=== PATIENT | male | born 1970 | race Caucasian/White ===

== ENCOUNTER 2021-12-07 16:52 | Inpatient (IN) | payer MEDICAID ==
[2021-12-07] MEDS ORDERED: KETOROLAC 15 MG/ML 1 ML VIAL IVP STA (17:11)
[2021-12-07] MEDS ORDERED: SODIUM CHLORIDE 0.9% 1,000 ML IV ONE (17:11)
--- NOTE | 2021-12-07 17:20 | ED ---
General Adult HPI - General Source: patient, RN notes reviewed, old records reviewed Mode of arrival: ambulatory Limitations: no limitations - History of Present Illness -: days(s) (2) Location: left (flank) Severity scale (1-10): 6 Quality: sharp, constant Treatments Prior to Arrival: none <Hammad Navarro - Last Filed: 12/08/21 01:13> <Therese Daley - Last Filed: 12/10/21 23:44> - General Chief complaint: Urogenital Stated complaint: Poss Kidney Stones Time Seen by Provider: 12/07/21 17:08 - History of Present Illness Initial comments: 51-year-old male placed in hallway 11, presents to the emergency room with 2 days of left flank pain that radiates down to his lower abdomen into his left testicle. Patient states that he feels like he needs to urinate and only small amounts. Denies hematuria, penile discharge or testicular swelling. No history of kidney stones. He denies any nausea, vomiting, diarrhea or fevers. (Hammad Navarro) - Related Data Home Medications Medication Instructions Recorded Confirmed Celecoxib [CeleBREX] 200 mg PO HS 12/07/21 12/07/21 buPROPion HCL [Wellbutrin XL] 300 mg PO DAILY 12/07/21 12/07/21 Previous Rx's Medication Instructions Recorded HYDROcodone/APAP 5-325MG [[place] 1 - 2 tab PO Q4HR PRN #10 tab 12/08/21 5-325] HYDROcodone/APAP 5-325MG [[place] 1 - 2 tab PO Q4HR PRN #10 tab 12/08/21 5-325] Ketorolac [Toradol] 10 mg PO Q6HR PRN #12 tab 12/08/21 Tamsulosin [Flomax] 0.4 mg PO DAILY #30 cap 12/08/21 Allergies Allergy/AdvReac Type Severity Reaction Status Date / Time No Known Allergies Allergy Verified 12/07/21 22:03 Review of Systems ROS Other: All systems not noted in ROS Statement are negative. <Hammad Navarro - Last Filed: 12/08/21 01:13> ROS Other: All systems not noted in ROS Statement are negative. <Therese Daley - Last Filed: 12/10/21 23:44> ROS Statement: Those systems with pertinent positive or pertinent negative responses have been documented in the HPI. Past Medical History Past Medical History: No Reported History History of Any Multi-Drug Resistant Organisms: None Reported Past Surgical History: Orthopedic Surgery Past Psychological History: No Psychological Hx Reported Smoking Status: Never smoker Past Alcohol Use History: Occasional Past Drug Use History: None Reported <Hammad Navarro - Last Filed: 12/08/21 01:13> General Exam Limitations: no limitations General appearance: alert, in no apparent distress Head exam: Present: atraumatic Eye exam: Present: normal appearance. Absent: scleral icterus, conjunctival injection Respiratory exam: Present: normal lung sounds bilaterally. Absent: respiratory distress, chest wall tenderness, accessory muscle use, decreased breath sounds Cardiovascular Exam: Present: regular rate GI/Abdominal exam: Present: soft, tenderness (Left lower quadrant), normal bowel sounds. Absent: distended, rigid Extremities exam: Absent: pedal edema Back exam: Present: full ROM. Absent: tenderness, CVA tenderness (R), CVA tenderness (L), rash noted Neurological exam: Present: alert, oriented X3, normal gait Psychiatric exam: Present: normal affect, normal mood Skin exam: Present: warm, dry, normal color. Absent: cyanosis, diaphoretic <Hammad Navarro - Last Filed: 12/08/21 01:13> Course Vital Signs 12/07/21 12/07/21 12/08/21 16:53 20:00 04:43 Temperature 98.4 F 98.3 F Pulse Rate 96 76 Pulse Rate [ 65 Right] Respiratory 18 16 16 Rate Blood Pressure 161/100 146/92 Blood Pressure 140/83 [Right Arm] O2 Sat by Pulse 96 99 95 Oximetry 12/08/21 12/08/21 08:00 10:12 Temperature 98.4 F Pulse Rate 69 68 Pulse Rate [ Right] Respiratory 18 18 Rate Blood Pressure 133/86 142/91 Blood Pressure [Right Arm] O2 Sat by Pulse 98 96 Oximetry Medical Decision Making - Lab Data Result diagrams: 12/07/21 22:30 12/07/21 22:30 <Hammad Navarro - Last Filed: 12/08/21 01:13> - Lab Data Result diagrams: 12/07/21 22:30 12/07/21 22:30 <Therese Daley - Last Filed: 12/10/21 23:44> - Medical Decision Making Well-appearing 51-year-old male presents emergency room with left flank pain for 2 days radiating into left groin and left testicle. Urinalysis shows no blood, many bacteria. Ultrasound reveals an bladder was performed due to morbid obesity visualization of small stones was limited. There is a possible hydronephrosis of the left ki dney. Ultrasound of the left testicle shows no evidence of testicular torsion or epididymitis. No varicocele or hydrocele. Patient continues to complain of left flank pain and a pulling sensation into the left testicle. KUB x-ray shows a nonacute abdomen with no calcifications over the kidneys. CAT scan shows an obstructing calculus distal left-sided hydronephrosis and hydroureter. There is a 7 mm obstructing calculus in the distal left ureter. There is a 7 mm calculus lower pole right kidney. There is a 7 mm calculus lateral left kidney. There is a 3 mm calculus lower pole left kidney. Patient continues to have pain after Toradol, morphine and Dilaudid. Patient was given another dose of morphine and urology was consulted. Patient will be admitted for observation to Dr. Corado. Case discussed with Dr. Thuy KAM Rocephin given for bacteriuria. (Hammad Navarro) I was available for consultation in the emergency department. The history and physical exam were done by the midlevel provider. I was consulted for this patients care. I reviewed the case with the midlevel provider and based on their presentation of the patient, I agree with the assessment, medical decision making and plan of care as documented. Chart was dictated using [employer] dictation software. Attempts were made to correct any dictation errors however some typographical errors may persist. Patient was seen during a national state of emergency due to the Covid-19 pandemic. (Therese Daley) - Lab Data Lab Results 12/07/21 Range/Units 18:25 Urine Color Yellow Urine Appearance Turbid (Clear) Urine pH 5.5 (5.0-8.0) Ur Specific [place] 1.035 (1.001-1.035) Urine Protein Trace H (Negative) Urine Glucose (UA) Negative (Negative) Urine Ketones Negative (Negative) Urine Blood Negative (Negative) Urine Nitrite Negative (Negative) Urine Bilirubin Negative (Negative) Urine Urobilinogen <2.0 (<2.0) mg/dL Ur Leukocyte Esterase Negative (Negative) Urine Bacteria Many H (None) /hpf Urine Mucus Few H (None) /hpf Urine Yeast (Budding) Few H (None) /hpf Disposition Decision Date: 12/08/21 <Hammad Navarro - Last Filed: 12/08/21 01:13> <Therese Daley - Last Filed: 12/10/21 23:44> Clinical Impression: Hydronephrosis with renal and ureteral calculous obstruction, LUIS (acute kidney injury) Disposition: ADMITTED IP TO THIS HOSP
[2021-12-07 18:41] LABS: Appearance,Urine Turbid (Clear); Bacteria,Urine Many /hpf; Bilirubin,Urine Negative (Negative); Blood,Urine Negative (Negative); Budding Yeast,Urine Few /hpf; Color,Urine Yellow; Glucose,Urine (UA) Negative (Negative); Ketones,Urine Negative (Negative); Leukocyte Esterase,Urine Negative (Negative); Mucus,Urine Few /hpf; Nitrite,Urine Negative (Negative); PH, Urine 5.5 (5.0-8.0); Protein,Urine Trace (Negative); Specific Gravity,Urine 1.035 (1.001-1.035); Urobilinogen,Urine <2.0 mg/dL (<2.0)
--- NOTE | 2021-12-07 18:49 | US ---
EXAMINATION TYPE: US renals and bladder DATE OF EXAM: 12/07/2021 COMPARISON: NONE CLINICAL HISTORY: uti, back pain, hx of kidney stones. EXAM MEASUREMENTS: Right Kidney: 14.0 x 5.8 x 6.2 cm Left Kidney: 12.5 x 7.1 x 7.0 cm Morbidly obese patient, technically difficult, very limited study. Due to morbid obesity visualizatio n of small stones would be unfeasable. Right Kidney: No hydronephrosis or masses seen Left Kidney: possible hydro Bladder: not seen, empty IMPRESSION: Large kidneys. No evidence of solid renal mass or obstruction. Limited exam. Urinary bladder empty du ring the exam.
--- NOTE | 2021-12-07 18:50 | US ---
EXAMINATION TYPE: US scrotum with doppler. Grayscale and color Doppler Duplex imaging performed of t marcus scrotum. DATE OF EXAM: 12/07/2021 COMPARISON: NONE CLINICAL HISTORY: left testicle pain. EXAM MEASUREMENTS: TESTICLES: Right Testicle: 5.2 x 2.6 x 2.9 cm Left Testicle: 5.3 x 3.4 x 2.6 cm EPIDIDYMIS HEAD: Right Epididymis: 1.0 cm Left Epididymis: 1.1 cm Doppler performed to assess for testicular vascularity; good bilateral color flow and waveforms are s een. There is no evidence of testicular torsion. Presence of hydroceles: no Presence of varicoceles: no IMPRESSION: Normal exam. No evidence of testicular torsion or mass. No free fluid.
[2021-12-07] MEDS ORDERED: MORPHINE SULFATE 4 MG/ML SYRINGE IVP STA (18:57)
--- NOTE | 2021-12-07 19:48 | XR ---
EXAMINATION TYPE: XR KUB DATE OF EXAM: 12/07/2021 COMPARISON: NONE HISTORY: Flank pain TECHNIQUE: 2 views FINDINGS: 2 views upright were obtained. There is no sign of intestinal obstruction or pneumoperitone um. Fecal pattern is normal. There is no evidence of a mass. There are no calcifications over the kid neys. Lung bases are clear. There is some degenerative spurring in the lumbar spine and thoracic spin e. IMPRESSION: Nonacute abdomen.
--- NOTE | 2021-12-07 21:37 | CT ---
EXAMINATION TYPE: CT abdomen pelvis wo con DATE OF EXAM: 12/07/2021 COMPARISON: None HISTORY: LT flank pain, renal stone suspected. CT DLP: 2361.8 mGycm Automated exposure control for dose reduction was used. Images obtained from the diaphragm to the floor the pelvis with no contrast. The lung bases are clear. There is no pleural effusion. Heart size is normal. There is no pericardial effusion. Liver spleen and stomach pancreas appear intact. The bile ducts are not dilated. There are small calc ified gallstone. There is no adrenal mass. Kidneys have normal size. There is left-sided hydronephrosis and hydrourete r. There is mild left-sided periureteral edema. There is 7 mm obstructing calculus in the distal left ureter. There is 7 mm calculus lower pole right kidney. There is 7 mm calculus lateral left kidney. There is 3 mm calculus lower pole left kidney. There is no retroperitoneal adenopathy. Appendix is po sterior and appears normal. The bladder is almost empty. There is no inguinal hernia. There is no fay e fluid in the pelvis. There is no pelvic mass. There is no mesenteric edema. There is no ascites or free air. There is no bowel obstruction. The lumbar vertebrae have normal alignment. There is degenerative disc space narrowing and spur forma tion. There is no compression fracture. There is some mild spurring of the endplates. There is mild m ultilevel vacuum disc. The bony pelvis is intact. The hip joints are intact. IMPRESSION: Obstructing calculus distal left ureter with left-sided hydronephrosis and hydroureter. Bilateral renal calculi. Normal appendix.
[2021-12-07] MEDS ORDERED: HYDROmorphone 0.5 MG/0.5 ML SYRINGE IVP STA (21:49)
[2021-12-07] MEDS ORDERED: ACETAMINOPHEN TAB 325 MG TAB PO PRN (22:19)
[2021-12-07] MEDS ORDERED: NALOXONE 0.4 MG/ML 1 ML VIAL IV PRN (22:19)
[2021-12-07] MEDS ORDERED: MORPHINE SULFATE 4 MG/ML SYRINGE IV PRN (22:19)
[2021-12-07] MEDS ORDERED: cefTRIAXone IN SWFI 1,000 MG/10 ML SYRINGE IVP STA (22:21)
[2021-12-07 23:14] LABS: Basophils % (A) 0 %; Eosinophils # (A) 0.1 k/uL (0-0.7); Eosinophils % (A) 1 %; HCT 43.4 % (39.0-53.0); HGB 14.6 gm/dL (13.0-17.5); Lymphocytes # (A) 1.4 k/uL (1.0-4.8); Lymphocytes % (A) 13 %; MCH 30.4 pg (25.0-35.0); MCHC 33.5 g/dL (31.0-37.0); MCV 90.7 fL (80.0-100.0); Mean Platelet Volume 7.7; Monocytes % (A) 9 %; Neutrophils # (A) 8.3 k/uL (1.3-7.7); Neutrophils % (A) 75 %; Platelet Count 181 k/uL (150-450); RBC 4.79 m/uL (4.30-5.90); RDW 12.5 % (11.5-15.5); WBC 11.1 k/uL (3.8-10.6)
[2021-12-07 23:23] LABS: ALT 26 U/L (4-49); AST 25 U/L (17-59); African American GFR (CKD) 70 (>60 ml/min/1.73 sqM); Albumin 4.5 g/dL (3.5-5.0); Albumin/Globulin Ratio 1.5; Alkaline Phosphatase 59 U/L (38-126); Anion Gap 10 mmol/L; Blood Urea Nitrogen 29 mg/dL (9-20); Calcium 9.4 mg/dL (8.4-10.2); Carbon Dioxide 27 mmol/L (22-30); Chloride 100 mmol/L (98-107); Globulin 3.1 g/dL; Glucose 101 mg/dL (74-99); Non-African American GFR(CKD) 61 (>60 ml/min/1.73 sqM); Potassium 4.3 mmol/L (3.5-5.1); Sodium 137 mmol/L (137-145); Total Bilirubin 0.9 mg/dL (0.2-1.3); Total Protein 7.6 g/dL (6.3-8.2)
[2021-12-07] MEDS: SODIUM CHLORIDE 0.9% 1,000 ML IV SCH (23:37)
[2021-12-08] MEDS: KETOROLAC 15 MG/ML 1 ML VIAL IVP PRN ×2 (00:55→08:11)
[2021-12-08] MEDS: SODIUM CHLORIDE 0.9% 1,000 ML IV SCH (04:49)
[2021-12-08 08:08] VITALS: RESP 18
--- NOTE | 2021-12-08 09:15 | P.GSHP ---
History of Present Illness H&P Date: 12/08/21 Chief Complaint: Left renal colic The patient is a 51-year-old white male with no prior history of urolithiasis. He now presents with a one-week history of left flank pain, which has moved lower and currently he reports left groin and testicular pain. Early in the course she experienced mild nausea. He denies dysuria and hematuria. He has developed urgency but void small amounts. - Constitutional Constitutional: Denies chills, Denies fever - Gastrointestinal Gastrointestinal: Denies nausea, Denies vomiting - Genitourinary (Male) Genitourinary: Reports flank pain, Reports kidney stones, Denies hematuria Past Medical History Past Medical History: No Reported History History of Any Multi-Drug Resistant Organisms: None Reported Past Surgical History: Orthopedic Surgery Past Psychological History: No Psychological Hx Reported Smoking Status: Never smoker Past Alcohol Use History: Occasional Past Drug Use History: None Reported Medications and Allergies Home Medications Medication Instructions Recorded Confirmed Type Celecoxib [CeleBREX] 200 mg PO HS 12/07/21 12/07/21 History buPROPion HCL [Wellbutrin XL] 300 mg PO DAILY 12/07/21 12/07/21 History HYDROcodone/APAP 5-325MG [[place] 1 - 2 tab PO Q4HR PRN #10 tab 12/08/21 Rx 5-325] Ketorolac [Toradol] 10 mg PO Q6HR PRN #12 tab 12/08/21 Rx Tamsulosin [Flomax] 0.4 mg PO DAILY #30 cap 12/08/21 Rx Allergies Allergy/AdvReac Type Severity Reaction Status Date / Time No Known Allergies Allergy Verified 12/07/21 22:03 Surgical - Exam Vital Signs Temp Pulse Resp BP Pulse Ox 98.4 F 96 18 161/100 96 12/07/21 16:53 12/07/21 16:53 12/07/21 16:53 12/07/21 16:53 12/07/21 16:53 - General well developed, well nourished, no distress - Respiratory normal respiratory effort - Abdomen Abdomen: soft, non tender, no guarding, no rigid, no rebound - Genitourinary normal penis with no external lesions, testicles non-tender - Psychiatric oriented to time, oriented to person, oriented to place, speech is normal, memory intact Results - Labs 12/07/21 22:30 12/07/21 22:30 Abnormal Lab Results - Last 24 Hours (Table) 12/07/21 12/07/21 12/07/21 Range/Units 18:25 22:30 22:30 WBC 11.1 H (3.8-10.6) k/uL Neutrophils # 8.3 H (1.3-7.7) k/uL BUN 29 H (9-20) mg/dL Creatinine 1.36 H (0.66-1.25) mg/dL Glucose 101 H (74-99) mg/dL Urine Protein Trace H (Negative) Urine Bacteria Many H (None) /hpf Urine Mucus Few H (None) /hpf Urine Yeast (Budding) Few H (None) /hpf Diabetes panel 12/07/21 Range/Units 22:30 Sodium 137 (137-145) mmol/L Potassium 4.3 (3.5-5.1) mmol/L Chloride 100 (98-107) mmol/L Carbon Dioxide 27 (22-30) mmol/L BUN 29 H (9-20) mg/dL Creatinine 1.36 H (0.66-1.25) mg/dL Glucose 101 H (74-99) mg/dL Calcium 9.4 (8.4-10.2) mg/dL AST 25 (17-59) U/L ALT 26 (4-49) U/L Alkaline Phosphatase 59 (38-126) U/L Total Protein 7.6 (6.3-8.2) g/dL Albumin 4.5 (3.5-5.0) g/dL Calcium panel 12/07/21 Range/Units 22:30 Calcium 9.4 (8.4-10.2) mg/dL Albumin 4.5 (3.5-5.0) g/dL Pituitary panel 12/07/21 Range/Units 22:30 Sodium 137 (137-145) mmol/L Potassium 4.3 (3.5-5.1) mmol/L Chloride 100 (98-107) mmol/L Carbon Dioxide 27 (22-30) mmol/L BUN 29 H (9-20) mg/dL Creatinine 1.36 H (0.66-1.25) mg/dL Glucose 101 H (74-99) mg/dL Calcium 9.4 (8.4-10.2) mg/dL Adrenal panel 12/07/21 Range/Units 22:30 Sodium 137 (137-145) mmol/L Potassium 4.3 (3.5-5.1) mmol/L Chloride 100 (98-107) mmol/L Carbon Dioxide 27 (22-30) mmol/L BUN 29 H (9-20) mg/dL Creatinine 1.36 H (0.66-1.25) mg/dL Glucose 101 H (74-99) mg/dL Calcium 9.4 (8.4-10.2) mg/dL Total Bilirubin 0.9 (0.2-1.3) mg/dL AST 25 (17-59) U/L ALT 26 (4-49) U/L Alkaline Phosphatase 59 (38-126) U/L Total Protein 7.6 (6.3-8.2) g/dL Albumin 4.5 (3.5-5.0) g/dL - Imaging CT scan - abdomen: report reviewed, image reviewed Assessment and Plan (1) Hydronephrosis with renal and ureteral calculous obstruction Current Visit: Yes Status: Acute Code(s): N13.2 - HYDRONEPHROSIS WITH RENAL AND URETERAL CALCULOUS OBSTRUCTION SNOMED Code(s): 064925806 (2) Calculus of ureter Current Visit: Yes Status: Acute Code(s): N20.1 - CALCULUS OF URETER SNOMED Code(s): 17974803 (3) Calculus of kidney Current Visit: Yes Status: Acute Code(s): N20.0 - CALCULUS OF KIDNEY SNOMED Code(s): 89697806 Plan: CT scan shows evidence of mild left hydroureteronephrosis due to a 7 mm left distal ureteral calculus. A similar sized calculus is seen within the left upper pole, as well as the right lower pole. There is an additional tiny left lower pole renal calculus. The patient's pain is currently controlled. I had a lengthy discussion with him, outlining alternative treatment options: 1) Medical expulsion therapy. 2) Left ureteral stent insertion with secondary ureteroscopy and laser lithotripsy. 3) Primary left ureteroscopy with laser lithotripsy. The pros, cons, and risks of each approach have been reviewed in detail. The patient has elected to be discharged home with the hopes that he will pass his calculus. He will undergo surgery if he develops intractable symptoms. He will follow-up in 1 week, sooner if needed. Given the multiple stones, he will require a formal metabolic evaluation. Time with Patient: Greater than 30
[2021-12-08 10:13] VITALS: BP 142/91; PULSE 68; TEMP 98.4
== END 2021-12-08 10:14 | disposition home or self-care (01) | DRG 694 ==
LOC: EC 16:52 → 4SSUR 22:23
PROVIDERS: ADMIT Urology; ATTEND Urology
DX: N13.2 Hydronephrosis with renal and ureteral calculous obstruction (principal); Z68.42 Body mass index [BMI] 45.0-49.9, adult; E66.01 Morbid (severe) obesity due to excess calories; N17.9 Acute kidney failure, unspecified; N50.819 Testicular pain, unspecified; Z79.899 Other long term (current) drug therapy
CPT/HCPCS: 74018; 74176; 76770; 76870; 80053; 81001; 85025; 87040; 93975; 96361; 96374; 96375; 99285

== ENCOUNTER → 2024-07-09 | Outpatient (CLI) | payer MEDICAID ==
--- NOTE | 2024-07-09 12:16 | XR ---
EXAMINATION TYPE: XR chest 2V DATE OF EXAM: 07/09/2024 11:57 AM CLINICAL INDICATION: Male, 53 years old with history of R051 ACUTE COUGH; [facility] COMPARISON: None TECHNIQUE: XR chest 2V Frontal view of the chest. FINDINGS: Lungs/Pleura: There is no evidence of pleural effusion, focal consolidation, or pneumothorax. Pulmonary vascularity: Unremarkable. Heart/mediastinum: Cardiomediastinal silhouette is unremarkable. Musculoskeletal: No acute osseous pathology. IMPRESSION: No acute cardiopulmonary disease/process. [facility], , 07/09/2024 12:14 PM
== END | disposition home or self-care (01) ==
LOC: RADXRYALE 11:46
PROVIDERS: ATTEND Physician Assistant
DX: R05.1 Acute cough (principal)
CPT/HCPCS: 71046